=== PATIENT | male | born 1975 | race Hispanic/Latino ===

== ENCOUNTER 2017-04-01 18:22 | Emergency (ER) | payer MEDICAID, OTHER ==
[2017-04-01 18:28] VITALS: BP 127/77; PULSE 78; RESP 20; O2SAT 94
--- NOTE | 2017-04-01 18:40 | ED.REPORT ---
HPI-Chest Pain 40 and Over Date of Service April 01, 2017 ED Provider: Manny Woodard MD 41 y/o male with a hx of anxiety is brought in to the ED from care home due to chest pain , onset 2 hours ago. He describes his pain as more of a pressure. The pt reports he has had anxiety attacks before and thought this was the same but the sx continued, which is unusual. The pt also complains of lightheadedness, palpitations, somnolence and tingling in his arms. The pt reports his sx have now resolved. He was prescribed Diazepam and Lorazepam for anxiety but he has not taken any today. Pt has also not taken any aspirin today. Nursing Notes Stated Complaint: CHEST PAIN, SHORTNESS OF BREATH Chief Complaint: Chest Pain Allergies: Coded Allergies: No Known Allergies (Unverified , 04/01/17) General Time Seen by MD: 18:40 Chief Complaint Chest pressure Hx Obtained From: Patient Arrived By: Police Sudden in Onset?: Yes Onset Occurred: 1 - 4 hours ago Symptom Duration: Intermittent Location: : Substernal Quality: Pressure Radiation: : Does not radiate Severity: Current: No pain currently Severity: Maximum: Moderate Recent Healthcare: No recent doctor visit Similar Sx Previous: Yes Past Medical History Past Medical History Anxiety Past Surgical History Spleenectomy Nephrectomy Smoking History Former Smoker Social History Alcohol Use: In recovery Drug Use: Denies drug use Ambulatory Status Independent Review of Systems Reports: somnolence. Reports: Tingling in arms. Cardiovascular: Reports: Chest pain, Palpitations Neurologic: Reports: Lightheaded Complete sys rev & neg: except as marked. Physical Exam Initial Vital Signs Vital Signs (First) Date Time Temp Pulse Resp B/P Pulse Ox O2 Delivery O2 Flow Rate FiO2 04/01/17 18:28 36.7 78 20 127/77 94 Room Air Initial VS: Reviewed Head / Eyes: Atraumatic, Normocephalic, PERRL ENT: Mucous membranes moist, Conjunctiva normal, No scleral icterus Neck: Supple, Full range of motion Extremities: Vascular intact, Neuro intact, No swelling, No tenderness Neurologic: Alert, Oriented, Nonfocal Psychiatric: Mood/affect normal, Behavior normal, Normal thought content Respiratory / Chest: Atraumatic, Breath sounds NL, Breath sounds = bilat, No respiratory distress, No rales, No rhonchi, No wheezing Cardiovascular: Heart rate NL, Regular rhythm, Heart sounds NL, No gallop, No murmurs, No rubs Abdomen: Atraumatic, Soft, Non-tender, No guarding, No rebound Skin: Atraumatic, Color NL, No rash, Warm, Dry, Intact Midline surgical scar across the abdomen. Interpretation & Diagnostics Lab Results Interpretation Result Diagram: 04/01/17185704/01/171857 Test 04/01/17 18:58 04/01/17 19:13 04/01/17 21:03 White Blood Count 10.4th/mm3 (3.8-10.1) Red Blood Count 5.43mil/mm3 (4.40-5.80) Hemoglobin 16.6g/dL (13.8-17.2) Hematocrit 47.2% (41.0-50.0) Mean Corpuscular Volume 86.9fL (81-100) Mean Corpuscular Hemoglobin 30.6pg (27.0-35.0) Mean Corpuscular Hemoglobin Concent 35.2% (32.0-37.0) Red Cell Distribution Width 13.2% (12.3-15.4) Platelet Count 263bil/L (150-400) Neutrophils (%) (Auto) 64.1% (40-74) Lymphocytes (%) (Auto) 24.9% (14-46) Monocytes (%) (Auto) 8.6% (4-12) Eosinophils (%) (Auto) 1.9% (0-5) Basophils (%) (Auto) 0.3% (0-3) Sodium Level 136mEq/L (134-144) Potassium Level 4.1mEq/L (3.5-5.2) Chloride Level 99mEq/L (97-108) Carbon Dioxide Level 22mmol/L (18-29) Blood Urea Nitrogen 13mg/dL (6-24) Creatinine 0.79mg/dL (0.76-1.27) Estimat Glomerular Filtration Rate 114mL/min (>59) Glucose Level 112mg/dL (60-99) Calcium Level 9.2mg/dL (8.5-10.1) Magnesium Level 2.0mg/dL (1.6-2.6) Total Bilirubin 0.3mg/dL (0.0-1.2) Aspartate Amino Transf (AST/SGOT) 41U/L (0-50) Alanine Aminotransferase (ALT/SGPT) 70U/L (0-44) Alkaline Phosphatase 111U/L (25-150) Total Protein 7.4g/dL (6.4-8.4) Albumin 4.2g/dL (3.4-5.0) Hold Urine Received (Received) Troponin T 0.010ug/L (0.0-0.011) ECG Interpretation ECG Interpretation: Normal sinus rate 90. No acute ST segment changes. Time: 18:45 Interpreted by: ED physician X-Ray Chest Interpretation Chest Xray Interpretation: IMPRESSION: No acute disease. Ill-defined 7 mm nodular opacity which could be further assessed with dedicated PA and lateral chest radiographs when clinically feasible. Dictated by: Nelson Carrasco M.D. on 04/01/2017 at 20:51 Approved by: Nelson Carrasco M.D. on 04/01/2017 at 20:53 View: Portable, 1 view Interpretation / Wet Read by: Interpret - Radiologist Re-Eval/Medical Decision Med Decision/Clinical Course Chest pain with history of anxiety. Normal trop x2 and ecg. symptoms similar to past anxiety. lorazepam 1mg x1 given. Source of Hx: Old records Time of Eval: 22:06 Patient Status: Condition improved Re-Evaluation/Progress Note: Rechecked pt. Discussed lab, imaging results and diagnosis. Informed the pt of the plan to discharge. Pt understands and agrees with plan. F/U instructions and RTER warning given. All questions addressed. Counseled Regarding: Diagnosis, Lab results, Need for follow-up, When/why to return to ED Discharge & Departure Primary Impression: Chest pain Chest pain type: precordial pain Qualified Code: R07.2 - Precordial pain Additional Impression: Anxiety Disposition: Home Discharge Condition All VS Reviewed: Yes Condition: Stable Patient Instructions: Chest Pain (ED) Additional Instructions: Emergency Department evaluation included interview, examination labs ECG and chest x-ray. No serious cause for chest pain is identified today. It is possible that this was related to anxiety and treatment for anxiety is at the discretion of care home medical staff. Return emergency Department department for increasing chest pain fevers or shortness of breath. Patient is clear to return to care home Scribe Attestation Portions of this note were transcribed by Dr.Slack Blanca, personally performed the history, physical exam and medical decision-making;I reviewed and confirmed the accuracy of the information in the transcribed note. Signed by Michaela Narayan. 04/01/17 [id number] Manny Woodard MD April 01, 2017 18:40 Guerline Blake April 01, 2017 19:08
[2017-04-01 19:04] LABS: BASOPHILS % (AUTO) 0.3 % (0-3); EOSINOPHILS % (AUTO) 1.9 % (0-5); MONOCYTES % (AUTO) 8.6 % (4-12); Mean Corpuscular Hemoglobin 30.6 pg (27.0-35.0); Mean Corpuscular Volume 86.9 fL (81-100); NEUTROPHILS % (AUTO) 64.1 % (40-74); Platelet Count 263 bil/L (150-400)
[2017-04-01 19:25] LABS: TROPONIN T < 0.010 ug/L (0.0-0.011)
--- NOTE | 2017-04-01 20:54 | DRSVH ---
PROCEDURE: X-RAY CHEST ONE VIEW, PORTABLE ([id number]) INDICATIONS: chest pain TECHNIQUE: One view of the chest was acquired. COMPARISON: None. FINDINGS: Surgical changes and devices: None. Lungs and pleura: No pleural effusions or pneumothorax. Lungs are clear. There is subtle groundgla ss nodule opacity measuring 7 mm projecting in the left midlung Mediastinum: Mediastinal contours appear normal. Heart size is normal. Bones and chest wall: No suspicious bony lesions. Overlying soft tissues appear unremarkable. IMPRESSION: No acute disease. Ill-defined 7 mm nodular opacity which could be further assessed with d edicated PA and lateral chest radiographs when clinically feasible. Dictated by: Nelson Carrasco M.D. on 04/01/2017 at 20:51 Approved by: Nelson Carrasco M.D. on 04/01/2017 at 20:53
[2017-04-01 20:58] VITALS: BP 110/71; PULSE 106; RESP 22; O2SAT 99
[2017-04-01] MEDS ORDERED: LORazepam 1 mg Tablet PO ONE (22:25)
== END 2017-04-01 22:26 | disposition home or self-care (01) ==
LOC: SED 18:22
DX: R07.2 Precordial pain (principal); F41.9 Anxiety disorder, unspecified; R42 Dizziness and giddiness; R00.2 Palpitations; R40.0 Somnolence; R20.2 Paresthesia of skin; Z87.891 Personal history of nicotine dependence